=== PATIENT | female | born 2000 | race Hispanic/Latino ===

== ENCOUNTER 2022-10-16 09:15 | Emergency (ER) | payer OTHER, SELFPAY ==
[2022-10-16 09:38] VITALS: BP 118/79; PULSE 84; RESP 16; TEMP 36.7; O2SAT 96
--- NOTE | 2022-10-16 09:38 | DI.CT.S_ITS ---
PROCEDURE: CT HEAD/BRAIN WO CON INDICATIONS: syncope TECHNIQUE: Noncontrast 4.5 mm thick angled axial sections acquired from the foramen magnum to the vertex, with coronal and sagittal reformats. For radiation dose reduction, the following was used: automated exposure control, adjustment of mA and/or kV according to patient size. COMPARISON: None. FINDINGS: Image quality: Excellent. CSF spaces: Basal cisterns are patent. No extra-axial fluid collections. Ventricles are normal in size and shape. Brain: No midline shift. No intracranial masses or hemorrhage. Rankin-white matter interface is normal. Skull and face: Calvarium and visualized facial bones are intact, without suspicious lesions. Sinuses: Visualized sinuses and mastoids are clear. IMPRESSION: No acute intracranial abnormality. Dictated by: Adamaris Mathis M.D. on 10/16/2022 at 10:05 Approved by: Adamaris Mathis M.D. on 10/16/2022 at 10:06
--- NOTE | 2022-10-16 09:38 | DI.CT.S_ITS ---
PROCEDURE: CT CERVICAL SPINE WO CON INDICATIONS: syncope TECHNIQUE: Noncontrast 3 mm thick sections acquired from the skull base to the T4 level. Sagittal and coronal reformats were then constructed. For radiation dose reduction, the following was used: automated exposure control, adjustment of mA and/or kV according to patient size. COMPARISON: None. FINDINGS: Image quality: Excellent. Bones: No fractures or dislocations. Visualized superior ribs are intact. Loss of normal cervical lordosis. Soft tissues: Prevertebral soft tissues are normal in thickness. No paravertebral hematomas. No apical pneumothoraces. IMPRESSION: No fracture. Dictated by: Adamaris Mathis M.D. on 10/16/2022 at 10:06 Approved by: Adamaris Mathis M.D. on 10/16/2022 at 10:07
--- NOTE | 2022-10-16 09:39 | DI.RAD.S_ITS ---
PROCEDURE: XR CHEST 1V INDICATIONS: chest pain TECHNIQUE: One view of the chest was acquired. COMPARISON: None. FINDINGS: Surgical changes and devices: None. Lungs and pleura: Lungs are clear. No pleural effusions or pneumothorax. Mediastinum: Mediastinal contours appear normal. Heart size is enlarged. Bones and chest wall: No suspicious bony lesions. Overlying soft tissues appear unremarkable. IMPRESSION: Cardiomegaly. This could be further assessed with echocardiography, if clinically indicated. Dictated by: Adamaris Mathis M.D. on 10/16/2022 at 10:05 Approved by: Adamaris Mathis M.D. on 10/16/2022 at 10:05
[2022-10-16 09:46] LABS: Add Manual Diff / Slide Review NO; Basophils Absolute Auto 0 /uL (0-100); Basophils Percent Auto 0.2 % (0-2); Eosinophils Absolute Auto 300 /uL (0-450); Hematocrit 44.9 % (36-46); Hemoglobin 14.9 g/dL (12.0-16.0); Lymphocytes Absolute Auto 4800 /uL (1100-4500); Lymphocytes Percent Auto 36.2 % (25-40); Mean Corpuscular HGB Conc 33.3 % (30-36); Mean Corpuscular Hemoglobin 28.6 PG (26-34); Mean Corpuscular Volume 85.9 fL (80-100); Monocytes Absolute Auto 700 /uL (0-900); Monocytes Percent Auto 5.5 % (3-14); Neutrophils Absolute Auto 7400 /uL (1500-7000); Neutrophils Percent Auto 56.1 % (50-75); Platelet Count 326 X10^3/uL (150-400); Red Blood Cell Count 5.22 X10^6/uL (4.0-5.2); White Blood Cell Count 13.1 X10^3/uL (4.5-11.0)
--- NOTE | 2022-10-16 09:48 | PC.NURSE ---
Addendum entered by Lalita Salinas R.N. 10/16/22 10:44: Pt reports fainting a couple months ago due to all the chemicals in the house when she was cleaning. Original Note: 0928: Pt desat to 87% on RA. Place on 2L via NC. Oxygen saturation improved to 100% on 2L via NC.
[2022-10-16 09:52] LABS: Alanine Aminotransferase 34 IU/L (<35); Alkaline Phosphatase 86 U/L (38-126); Aspartate Aminotransferase 32 IU/L (14-36); BUN Creatinine Ratio 19.3 (6-22); Bilirubin Total 0.4 mg/dL (0.2-1.3); Blood Urea Nitrogen 11 mg/dL (7-17); Calcium 9.5 mg/dL (8.4-10.2); Carbon Dioxide 28 mmol/L (22-32); Chloride 101 mmol/L (98-107); Creatine Kinase 92 U/L (30-135); Estimated Glomerular Filt Rate > 60 mL/min (>60); Glucose 89 mg/dL (70-100); Lipase 30 U/L (23-300); Potassium 3.8 mmol/L (3.4-5.1); Sodium 139 mmol/L (137-145); Total Protein 8.7 g/dL (6.3-8.2)
[2022-10-16 10:04] LABS: Troponin I < 0.012 ng/mL (0.01-0.034)
--- NOTE | 2022-10-16 10:42 | PC.NURSE ---
Pt unable to flex or extend her right foot. Pt able to flex left foot, but unable to extend left foot. She can feel touch to her foot. Pedal pulse strong. Provider aware.
--- NOTE | 2022-10-16 11:11 | ED_ITS ---
HPI - Syncope General Chief Complaint: Syncope Stated Complaint: Syncope Time Seen by Provider: 10/16/22 09:37 Source: patient and EMS Mode of arrival: EMS Limitations: altered mental status History of Present Illness HPI narrative: Patient is a 22-year-old speaking female who presents after a syncopal episode at work. She is offered educational interpreter services but agrees to have a friend interpret for her. She had a brief syncopal episode previously. 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 She tried to stand up quickly and then passed out again. No nausea vomiting. She denies any chest pain or palpitations. Complaining of neck pain. Patient did decide to use educational interpreter service. She reports that she had a syncopal episode a few months ago while cleaning thought it was due to chemicals. Today she just did not feel quite right felt dizzy and lightheaded fell chloride hitting her head brief loss of consciousness. No injury to her head. She denies any chest pain palpitations nausea vomiting. He is overall weak. She denies any alcohol use or drug use. Review of Systems Review of Systems ROS Unobtainable: All systems reviewed & are unremarkable except as noted in HPI and below Patient History Social History Smoking Status: Unknown if ever smoked Smoking Status: Unknown if ever smoked Substance Use Type: does not use Exam Initial Vital Signs Initial Vital Signs: Vital Signs Temperature 98.0 F 10/16/22 09:38 Pulse Rate 84 10/16/22 09:38 Respiratory Rate 16 10/16/22 09:38 Blood Pressure 118/79 10/16/22 09:38 Pulse Oximetry 96 10/16/22 09:38 Oxygen Delivery Method 10/16/22 09:38 Oxygen Flow Rate 0 10/16/22 09:38 GENERAL: Alert pleasant week 22-year-old female and in [no acute] distress. HEENT: Head atraumatic,EOMI, pupils reactive, face symmetric, [moist] mucous membranes C-collar in place tender to touch CARDIOVASCULAR: Regular rate and rhythm without murmurs, rubs or gallops. RESPIRATORY: Breath sounds equal bilaterally, no wheezes rales or rhonchi. ABDOMEN: Soft, nontender. Normoactive bowel sounds all 4 quadrants. No guardi ng or rebound. EXTREMITIES: Normal range of motion, no clubbing or edema. Neurovascularly intact NEUROLOGICAL: Alert and oriented x4.Normal gait and speech. Sports Commentator strength equal bilaterally able to lift right and left leg equally SKIN: Warm, dry, no laceration, no petechiae, no rashes or lesions. Course Orders Ordered: ED Orders 10/16/22 10:13 ETOH [Ethanol (ETOH)] Stat Prolactin Stat 10/16/22 11:09 Test Urine Stat UA Complete [Urinalysis and Microscopic] Stat Urine Drug Screen, Rapid Stat 10/16/22 11:34 Lactate (Lactic Acid) Stat 10/16/22 11:35 Covid-19 + FLU A/B + RSV - PCR Stat Vital Signs Vital signs: Vital Signs - 8 hr 10/16/22 11:58 Pulse Rate 78 Respiratory Rate 20 Blood Pressure 105/61 Pulse Oximetry 97 Oxygen Delivery Method Room Air MDM - Syncope Lab Data Result diagrams: 10/16/22 09:32 10/16/22 09:32 Labs: Lab Results 10/16/22 10/16/22 10/16/22 Range/Units 09:31 09:32 09:32 WBC 13.1 H (4.5-11.0) X10^3/uL RBC 5.22 H (4.0-5.2) X10^6/uL Hgb 14.9 (12.0-16.0) g/dL Hct 44.9 (36-46) % MCV 85.9 (80-100) fL MCH 28.6 (26-34) PG MCHC 33.3 (30-36) % RDW 13.0 (11.6-14.8) % Plt Count 326 (150-400) X10^3/uL Neut % (Auto) 56.1 (50-75) % Lymph % (Auto) 36.2 (25-40) % Iron % (Auto) 5.5 (3-14) % Eos % (Auto) 2.0 (2-4) % Baso % (Auto) 0.2 (0-2) % Neut # (Auto) 7400 H (1815-9291) /uL Lymph # (Auto) 4800 H (0056-5686) /uL Iron # (Auto) 700 (0-900) /uL Eos # (Auto) 300 (0-450) /uL Baso # (Auto) 0 (0-100) /uL D-Dimer 250 (<500) ng/ml Sodium 139 (137-145) mmol/L Potassium 3.8 (3.4-5.1) mmol/L Chloride 101 (98-107) mmol/L Carbon Dioxide 28 (22-32) mmol/L BUN 11 (7-17) mg/dL Creatinine 0.57 (0.52-1.04) mg/dL Estimated GFR > 60 (>60) mL/min BUN/Creatinine Ratio 19.3 (6-22) Glucose 89 (70-100) mg/dL Lactate (0.7-2.1) mmol/L Calcium 9.5 (8.4-10.2) mg/dL Total Bilirubin 0.4 (0.2-1.3) mg/dL AST 32 (14-36) IU/L ALT 34 (<35) IU/L Alkaline Phosphatase 86 (38-126) U/L Total Creatine Kinase 92 (30-135) U/L CK-MB (CK-2) TNP CK-MB (CK-2) Rel Index TNP Troponin I < 0.012 (0.01-0.034) ng/mL Total Protein 8.7 H (6.3-8.2) g/dL Lipase 30 (23-300) U/L Prolactin (3.0-18.6) ng/mL Urine Color Urine Appearance Urine pH (4.5-8.0) Ur Specific [place] (1.000-1.035) Urine Protein (Negative) Urine Glucose (UA) (Negative) g/dL Urine Ketones (NEGATIVE) Urine Occult Blood (Negative) Urine Nitrate (Negative) Urine Bilirubin (NEGATIVE) Urine Urobilinogen (0.2) E.U./dL Ur Leukocyte Esterase (NEGATIVE) Urine RBC (0-5/HPF) Urine WBC (0-5/HPF) Ur Squamous Epith Cells (0-5/HPF) Amorphous Sediment Urine Bacteria (None) Ur Culture Indicated? Urine Test (Negative) U Opiates 300ng/mL cut (Negative) Ur Oxycodone Screen (Negative) Urine Methadone Screen (Negative) Ur Barbiturates Screen (Negative) U Tricyclic Antidepress (Negative) Ur Phencyclidine Scrn (Negative) Ur Amphetamines Screen (Negative) U Methamphetamines Scrn (Negative) Ur MDMA Scrn (Ecstasy) (Negative) U Benzodiazepines Scrn (Negative) Urine Cocaine Screen (Negative) U Marijuana (THC) Screen (Negative) Ethyl Alcohol ( - 10) mg/dL SARS-CoV-2 (PCR) (Negative) Influenza A (RT-PCR) (NEGATIVE) Influenza B (RT-PCR) (NEGATIVE) RSV (PCR) (Negative) 10/16/22 10/16/22 10/16/22 Range/Units 10:13 11:09 11:09 WBC (4.5-11.0) X10^3/uL RBC (4.0-5.2) X10^6/uL Hgb (12.0-16.0) g/dL Hct (36-46) % MCV (80-100) fL MCH (26-34) PG MCHC (30-36) % RDW (11.6-14.8) % Plt Count (150-400) X10^3/uL Neut % (Auto) (50-75) % Lymph % (Auto) (25-40) % Iron % (Auto) (3-14) % Eos % (Auto) (2-4) % Baso % (Auto) (0-2) % Neut # (Auto) (0352-7565) /uL Lymph # (Auto) (7481-2263) /uL Iron # (Auto) (0-900) /uL Eos # (Auto) (0-450) /uL Baso # (Auto) (0-100) /uL D-Dimer (<500) ng/ml Sodium (137-145) mmol/L Potassium (3.4-5.1) mmol/L Chloride (98-107) mmol/L Carbon Dioxide (22-32) mmol/L BUN (7-17) mg/dL Creatinine (0.52-1.04) mg/dL Estimated GFR (>60) mL/min BUN/Creatinine Ratio (6-22) Glucose (70-100) mg/dL Lactate (0.7-2.1) mmol/L Calcium (8.4-10.2) mg/dL Total Bilirubin (0.2-1.3) mg/dL AST (14-36) IU/L ALT (<35) IU/L Alkaline Phosphatase (38-126) U/L Total Creatine Kinase (30-135) U/L CK-MB (CK-2) CK-MB (CK-2) Rel Index Troponin I (0.01-0.034) ng/mL Total Protein (6.3-8.2) g/dL Lipase (23-300) U/L Prolactin 14.6 (3.0-18.6) ng/mL Urine Color Yellow Urine Appearance Clear Urine pH 7.5 (4.5-8.0) Ur Specific [place] 1.010 (1.000-1.035) Urine Protein Negative (Negative) Urine Glucose (UA) Negative (Negative) g/dL Urine Ketones Negative (NEGATIVE) Urine Occult Blood Negative (Negative) Urine Nitrate Negative (Negative) Urine Bilirubin Negative (NEGATIVE) Urine Urobilinogen 0.2 (0.2) E.U./dL Ur Leukocyte Esterase Negative (NEGATIVE) Urine RBC 0-1/hpf (0-5/HPF) Urine WBC 0-1/hpf (0-5/HPF) Ur Squamous Epith Cells 1-5 /hpf (0-5/HPF) Amorphous Sediment 1+ Urine Bacteria None seen (None) Ur Culture Indicated? Cult not indicated Urine Test Negative (Negative) U Opiates 300ng/mL cut (Negative) Ur Oxycodone Screen (Negative) Urine Methadone Screen (Negative) Ur Barbiturates Screen (Negative) U Tricyclic Antidepress (Negative) Ur Phencyclidine Scrn (Negative) Ur Amphetamines Screen (Negative) U Methamphetamines Scrn (Negative) Ur MDMA Scrn (Ecstasy) (Negative) U Benzodiazepines Scrn (Negative) Urine Cocaine Screen (Negative) U Marijuana (THC) Screen (Negative) Ethyl Alcohol < 10 ( - 10) mg/dL SARS-CoV-2 (PCR) (Negative) Influenza A (RT-PCR) (NEGATIVE) Influenza B (RT-PCR) (NEGATIVE) RSV (PCR) (Negative) 10/16/22 10/16/22 10/16/22 Range/Units 11:09 11:34 11:35 WBC (4.5-11.0) X10^3/uL RBC (4.0-5.2) X10^6/uL Hgb (12.0-16.0) g/dL Hct (36-46) % MCV (80-100) fL MCH (26-34) PG MCHC (30-36) % RDW (11.6-14.8) % Plt Count (150-400) X10^3/uL Neut % (Auto) (50-75) % Lymph % (Auto) (25-40) % Iron % (Auto) (3-14) % Eos % (Auto) (2-4) % Baso % (Auto) (0-2) % Neut # (Auto) (4299-5322) /uL Lymph # (Auto) (0421-1510) /uL Iron # (Auto) (0-900) /uL Eos # (Auto) (0-450) /uL Baso # (Auto) (0-100) /uL D-Dimer (<500) ng/ml Sodium (137-145) mmol/L Potassium (3.4-5.1) mmol/L Chloride (98-107) mmol/L Carbon Dioxide (22-32) mmol/L BUN (7-17) mg/dL Creatinine (0.52-1.04) mg/dL Estimated GFR (>60) mL/min BUN/Creatinine Ratio (6-22) Glucose (70-100) mg/dL Lactate 0.7 (0.7-2.1) mmol/L Calcium (8.4-10.2) mg/dL Total Bilirubin (0.2-1.3) mg/dL AST (14-36) IU/L ALT (<35) IU/L Alkaline Phosphatase (38-126) U/L Total Creatine Kinase (30-135) U/L CK-MB (CK-2) CK-MB (CK-2) Rel Index Troponin I (0.01-0.034) ng/mL Total Protein (6.3-8.2) g/dL Lipase (23-300) U/L Prolactin (3.0-18.6) ng/mL Urine Color Urine Appearance Urine pH (4.5-8.0) Ur Specific [place] (1.000-1.035) Urine Protein (Negative) Urine Glucose (UA) (Negative) g/dL Urine Ketones (NEGATIVE) Urine Occult Blood (Negative) Urine Nitrate (Negative) Urine Bilirubin (NEGATIVE) Urine Urobilinogen (0.2) E.U./dL Ur Leukocyte Esterase (NEGATIVE) Urine RBC (0-5/HPF) Urine WBC (0-5/HPF) Ur Squamous Epith Cells (0-5/HPF) Amorphous Sediment Urine Bacteria (None) Ur Culture Indicated? Urine Test (Negative) U Opiates 300ng/mL cut Negative (Negative) Ur Oxycodone Screen Negative (Negative) Urine Methadone Screen Negative (Negative) Ur Barbiturates Screen Negative (Negative) U Tricyclic Antidepress Negative (Negative) Ur Phencyclidine Scrn Negative (Negative) Ur Amphetamines Screen Negative (Negative) U Methamphetamines Scrn Negative (Negative) Ur MDMA Scrn (Ecstasy) Negative (Negative) U Benzodiazepines Scrn Negative (Negative) Urine Cocaine Screen Negative (Negative) U Marijuana (THC) Screen Negative (Negative) Ethyl Alcohol ( - 10) mg/dL SARS-CoV-2 (PCR) Negative (Negative) Influenza A (RT-PCR) Flu a negative (NEGATIVE) Influenza B (RT-PCR) Flu b negative (NEGATIVE) RSV (PCR) Negative (Negative) Imaging Data CT scan - head: Radiologist's Impression: [place] [id number] [address] Scan Report Signed Patient: Saba Taylor MR#: [id number] : 2000 Acct:[id number] Age/Sex: 22 / F Date of Service: 10/16/22 Loc: ED Accession Number: [id number] ?? Procedure: CT head/brain wo con Ordering Provider: Ilana Ann D.O. PROCEDURE:? CT HEAD/BRAIN WO CON ? INDICATIONS:? syncope ? TECHNIQUE:? Noncontrast 4.5 mm thick angled axial sections acquired from the foramen magnum to the vertex, with coronal and sagittal reformats.? For radiation dose reduction, the following was used:? automated exposure control, adjustment of mA and/or kV according to patient size.? ? COMPARISON:? None. ? FINDINGS:? Image quality:? Excellent.? ? CSF spaces:? Basal cisterns are patent.? No extra-axial fluid collections.? Ventricles are normal in size and shape.? ? Brain:? No midline shift.? No intracranial masses or hemorrhage.? Rankin-white matter interface is normal.? ? Skull and face:? Calvarium and visualized facial bones are intact, without suspicious lesions.? ? Sinuses:? Visualized sinuses and mastoids are clear.? ? IMPRESSION:? No acute intracranial abnormality. ? ? Dictated by: Adamaris Mathis M.D. on 10/16/2022 at 10:05 ? ? CT - cervical spine: Radiologist's Impression: Patient: Saba Taylor MR#: [id number] : 2000 Acct:[id number] Age/Sex: 22 / F Date of Service: 10/16/22 Loc: ED Accession Number: [id number] ?? Procedure: CT cervical spine wo con Ordering Provider: Ilana Ann D.O. PROCEDURE:? CT CERVICAL SPINE WO CON ? INDICATIONS:? syncope ? TECHNIQUE:? Noncontrast 3 mm thick sections acquired from the skull base to the T4 level.? Sagittal and coronal reformats were then constructed.? For radiation dose reduction, the following was used:? automated exposure control, adjustment of mA and/or kV according to patient size.? ? COMPARISON:? None. ? FINDINGS:? Image quality:? Excellent.? ? Bones:? No fractures or dislocations.? Visualized superior ribs are intact.? Loss of normal cervical lordosis. ? Soft tissues:? Prevertebral soft tissues are normal in thickness.? No paravertebral hematomas.? No apical pneumothoraces.? ? ? IMPRESSION:? No fracture. ? Dictated by: Adamaris Mathis M.D. on 10/16/2022 at 10:06 ? ? Approved by: Adamaris Mathis M.D. on 10/16/2022 at 10:07 ? ECG Data Interpretation: Normal sinus rhythm rate 75 MD interval 162 QRS [address] changes no T- wave inversions no priors to compare MDM Narrative Medical decision making narrative: Patient is a 22-year-old female who presents with a syncopal episode while at work. Workup in the emergency department included head CT and C-spine which were both negative. Blood work is overall reassuring without any electrolyte abnormality. Mild leukocytosis of 13 without any infectious symptoms. COVID influenza and RSV are negative. Normally EKG. The patient may have had a brief fainting syncopal episode. I did use the educational interpreter services and interviewed her without her employee work people around. She denies any drug use or alcohol use. Not significantly dehydrated. She is given IV fluids. Overall feeling better and ready able to go home. MDM * differential diagnosis includes but not limited to: Cardiogenic syncope neurologic syncope cervical fracture electrolyte abnormality sepsis * Prior records reviewed: None * My lab interpretation: \as above * My imaging interpretation: CT head CT cervical spine chest x-ray all negative * Clinical Decision Rules/Scores evaluated: None * Independent discussions with: None * Social Considerations: Jamaican speaking educational interpreter line is used along with her friend to interpret for her * Shared Decision Making: With patient *Disposition: see below, along with detailed discharge instructions that have been reviewed with patient as well as indications for ED re-evaluation and additional outpatient follow up Discharge Plan Departure Patient Disposition: Home Clinical Impression: Vasovagal syncope Instructions: DI for Syncope in Adults (Fainting) Activity Restrictions/Additional Instructions: *You have been diagnosed with syncope *What to do: At this time blood work and CT scans are negative. Please be sure to drink plenty of water. *Continue to take medications as directed *Follow up with your primary care provider in 2-3 days or call [phone] *Return to ER if you should have passing out persistent vomiting weakness numbness tingling or any new, worsening or concerning symptoms Stand Alone Forms: Patient Portal/API
[2022-10-16 11:17] LABS: D Dimer 250 ng/ml (<500)
[2022-10-16 11:18] LABS: Ethanol (ETOH) < 10 mg/dL
[2022-10-16 11:35] LABS: Prolactin 14.6 ng/mL (3.0-18.6)
[2022-10-16 11:51] LABS: Appearance Urine UA CLEAR; Bilirubin Urine UA NEGATIVE (NEGATIVE); Color Urine UA YELLOW; Glucose Urine UA NEGATIVE (Negative); Ketones Urine UA NEGATIVE (NEGATIVE); Leukocyte Esterase Urine UA NEGATIVE (NEGATIVE); Nitrite Urine UA NEGATIVE (Negative); Occult Blood Urine UA NEGATIVE (Negative); Protein Urine UA NEGATIVE (Negative); Urobilinogen Urine UA 0.2 E.U./dL (0.2)
[2022-10-16 11:53] VITALS: BMI 35.7
[2022-10-16 11:53] LABS: Lactate (Lactic Acid) 0.7 mmol/L (0.7-2.1)
--- NOTE | 2022-10-16 11:54 | PC.NURSE ---
Pt tells this RN she does not wish to speak to director of social work at this time. RADIAGRAPH OPERATOR made aware.
[2022-10-16 11:55] LABS: Pregnancy Test Urine Negative (Negative)
[2022-10-16 11:56] LABS: UR Morphine/Opiate cutoff 300 Negative (Negative); Ur Creatinine Normal (Normal); Ur Specific Gravity Normal (Normal); Urine Amphetamines Negative (Negative); Urine Barbiturates Negative (Negative); Urine Benzodiazepines Negative (Negative); Urine Cocaine Negative (Negative); Urine MDMA Negative (Negative); Urine Methadone Negative (Negative); Urine Methamphetamines Negative (Negative); Urine Oxycodone Negative (Negative); Urine Phencyclidine Negative (Negative); Urine Tetrahydrocannabinol Negative (Negative); Urine Tricyclic Antidepressant Negative (Negative); Urine pH Normal (Normal)
[2022-10-16 11:58] VITALS: BP 105/61; PULSE 78; RESP 20; O2SAT 97
[2022-10-16 12:13] LABS: Amorphous Sediment Urine 1+; Bacteria Urine None Seen; Culture Indicated Urine Cult Not Indicated; RBC Urine 0-1/HPF (0-5/HPF); Squamous Epithelial Cell Urine 1-5 /HPF (0-5/HPF); WBC Urine 0-1/HPF (0-5/HPF); pH Urine UA 7.5 (4.5-8.0)
[2022-10-16 12:19] LABS: Influenza A - CEPHEID Flu A NEGATIVE (NEGATIVE); Influenza B - CEPHEID Flu B NEGATIVE (NEGATIVE); Respiratory Syncytial Virus Negative (Negative)
[2022-10-16 12:20] LABS: COVID-19 CEPHEID 4-PLEX PCR Negative (Negative)
[2022-10-17 16:55] LABS: Albumin 4.9 g/dL (3.5-5.0); Albumin Globulin Ratio 1.3 (1.0-2.8); Globulin 3.8 g/dL (1.7-4.1); HEMOLYSIS 29 (0-50)
== END 2022-10-16 12:51 | disposition home or self-care (01) ==
PROVIDERS: Emergency Provider Emergency Medicine
DX: R55 Syncope and collapse (principal); Z20.822 Contact with and (suspected) exposure to COVID-19
CPT/HCPCS: 0241U; 36415; 70450; 71045; 72125; 80053; 80305; 80320; 81001; 81025; 82550; 83605; 83690; 84146; 84484; 85025; 85379; 93005; 99284